=== PATIENT | male | born 1990 | race Caucasian/White ===

== ENCOUNTER 2018-04-06 09:41 | Emergency (ER) | payer OTHER ==
[~2018-04-06] VITALS: Ht 175.3 cm; Wt 68.9 kg
[2018-04-06 09:54] VITALS: BP 125/78; Ht 175.3 cm; Wt 68.9 kg
== END 2018-04-06 10:57 | disposition home or self-care (01) ==
LOC: ED 09:41
DX: M77.9 Enthesopathy, unspecified (principal)
CPT/HCPCS: A4570

== ENCOUNTER 2020-08-27 14:44 | Emergency (ER) | payer OTHER, SELFPAY ==
[~2020-08-27] VITALS: Ht 170.2 cm; Wt 73.9 kg
[2020-08-27 15:21] VITALS: Ht 170.2 cm; Wt 73.9 kg
[2020-08-27 16:20] VITALS: BP 143/100
== END 2020-08-27 16:20 | disposition home or self-care (01) ==
LOC: ED 14:44
DX: U07.1 COVID-19 (principal)
CPT/HCPCS: U0003